=== PATIENT | female | born 1985 | race Caucasian/White ===

== ENCOUNTER 2020-05-13 02:34 | Observation (INO) | payer SELFPAY ==
[~2020-05-13] VITALS: Ht 162 cm; Wt 68.9 kg
[~2020-05-13 02:34] MED LIST: ALPR1T PO; ALPR2TAB2 PO; BUTA-234 PO; CYCL10TA9 PO; FAMO20TA5 PO; HYDR-700 PO; HYDR1TAB PO; IBUP-15 PO; KETO50CA PO; LEVO500T69 PO; METH4TAB PO; MUPI1OIN6 TP; NAPR-243 PO; NAPR-248 PO; NITR100C3 PO; PRD20T PO; PRX10T PO; SMTR50T PO; SULF1TAB23 PO; SULF1TAB35 PO; SULF1TAB38 PO; SUMA1TAB PO; TRAM50TA2 PO; WELLBUTRIN PO
[2020-05-13] MEDS ORDERED: PROPRANOLOL 20 MG (INDERAL) TABLET PO ONE (03:00)
[2020-05-13] MEDS ORDERED: ORPHENADRINE 60 MG/2 ML (NORFLEX) AMP (ED ONLY) IV ONE (03:00)
[2020-05-13] MEDS ORDERED: KETOROLAC 30 MG/ML VIAL IVP ONE (03:00)
--- NOTE | 2020-05-13 03:00 | NUR ---
PT BACK PAIN IS BETTER; BUT RESTLESS LEGS ARE GETTING WORSE. MD NOTIFIED.
[2020-05-13 03:23] LABS: BILIRUBIN,URINE NEGATIVE (NEGATIVE); CLARITY,URINE SL CLOUDY; COLOR,URINE OTHER; GLUCOSE, URINE (UA) NEGATIVE (NEGATIVE); KETONES,URINE NEGATIVE (NEGATIVE); LEUKOCYTE ESTERASE ,URINE NEGATIVE (NEGATIVE); NITRITE,URINE NEGATIVE (NEGATIVE); PROTEIN,URINE NEGATIVE (NEGATIVE)
[2020-05-13 03:35] LABS: AMPHETAMINE SCREEN, URINE NEGATIVE (NEGATIVE); BARBITURATE SCREEN URINE NEGATIVE (NEGATIVE); BENZODIAZEPINES SCREEN URINE NEGATIVE (NEGATIVE); CANNABINOID SCREEN, URINE NEGATIVE (NEGATIVE); COCAINE SCREEN URINE NEGATIVE (NEGATIVE); METHADONE STAT NEGATIVE (NEGATIVE); METHAMPHETAMINE SCREEN URINE S NEGATIVE (NEGATIVE); OPIATE SCREEN URINE NEGATIVE (NEGATIVE); OXYCODONE STAT NEGATIVE (NEGATIVE); PROPOXYPHENE STAT NEGATIVE (NEGATIVE); TRICYCLIC ANTIDEPRESSANTS SCRE POSITIVE (NEGATIVE)
[2020-05-13 03:39] LABS: BACTERIA,URINE TRACE /HPF; SQUAMOUS EPITHELIAL CELL,UR 0-2 /HPF; WBC,URINE RARE /HPF
[2020-05-13] MEDS ORDERED: LORazepam INJ 2 MG/ML (ATIVAN) VIAL IVP ONE ×2 (03:45→04:15)
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
[2020-05-13] MEDS ORDERED: PRAMIPEXOLE 0.125 MG (MIRAPEX) TABLET PO ONE (04:15)
--- NOTE | 2020-05-13 04:19 | NUR ---
PT NOW HALLUCINATING AND STILL RESTLESS AND UNABLE TO SIT STILL. PT STUMBLING AROUND ROOM, PLACED IN BED AND SIDE RAILS UP X2.
[2020-05-13 04:21] LABS: BASOPHILS % (AUTO) 1 % (0-10); EOSINOPHILS # (AUTO) 0.1 10^3/uL (0.0-0.3); EOSINOPHILS % (AUTO) 2 % (0-10); HEMATOCRIT 39 % (35-52); HEMOGLOBIN 13.5 G/DL (11.5-16.0); LYMPHOCYTES # (AUTO) 2.6 X 10^3 (1.0-4.0); LYMPHOCYTES % (AUTO) 41 % (12-44); MEAN CORPUSCULAR HEMOGLOBIN 31 PG (25-34); MEAN CORPUSCULAR HGB CONC 35 G/DL (32-36); MEAN CORPUSCULAR VOLUME 89 FL (80-99); MEAN PLATELET VOLUME 10.8 FL (7.4-10.4); MONOCYTES # (AUTO) 0.7 X 10^3 (0.0-1.0); MONOCYTES % (AUTO) 12 % (0-12); NEUTROPHILS # (AUTO) 2.9 X 10^3 (1.8-7.8); NEUTROPHILS % (AUTO) 46 % (42-75); PLATELET COUNT 256 10^3/uL (130-400); RED CELL DISTRIBUTION WIDTH 12.3 % (10.0-14.5); WHITE BLOOD COUNT 6.4 10^3/uL (4.3-11.0)
[2020-05-13 04:22] LABS: CHLORIDE 108 MMOL/L (98-107); POTASSIUM 3.6 MMOL/L (3.6-5.0); SODIUM 142 MMOL/L (135-145)
[2020-05-13 04:23] LABS: CALCIUM 9.4 MG/DL (8.5-10.1)
[2020-05-13 04:24] LABS: GLUCOSE 96 MG/DL (70-105)
[2020-05-13 04:25] LABS: CARBON DIOXIDE 23 MMOL/L (21-32)
[2020-05-13] MEDS ORDERED: diphenhydrAMINE 25 MG TAB (BENADRYL) PO ONE ×2 (04:26→04:30)
[2020-05-13 04:28] LABS: CREATININE SERUM 1.01 MG/DL (0.60-1.30); GFR ESTIMATED > 60
[2020-05-13 04:29] LABS: BUN/CREATININE RATIO 14
[2020-05-13 04:30] LABS: MAGNESIUM 2.1 MG/DL (1.6-2.4)
[2020-05-13] MEDS ORDERED: diphenhydrAMINE 50 MG/ML INJ (BENADRYL) IVP ONE (04:30)
--- NOTE | 2020-05-13 05:31 | NUR ---
PT CONTINUES TO HALLUCINATE; UNABLE TO OBTAIN VITALS OR KEEP PT ON MONITOR DUE TO EXCESSIVE WANDERING AND MOVING. MONITORING PT CLOSELY AT THIS TIME.
[2020-05-13] MEDS ORDERED: HALOPERIDOL 0.5 MG (HALDOL) TAB ONE (06:08)
--- NOTE | 2020-05-13 06:11 | NUR ---
PLAN TO ADMIT FOR OBSERVATION WITH ONE ON ONE SITTER FOR PATIENT SAFETY. UPDATED FAMILY OF PLAN OF CARE.
[2020-05-13] MEDS ORDERED: HALOPERIDOL 2 MG (HALDOL) TABLET PO ONE (06:15)
[2020-05-13 07:28] VITALS: BP 104/61
--- NOTE | 2020-05-13 08:01 | NUR ---
Monicahenna Saleh admitted to room 408-1. Live sitter at bedside. Patient resting with eyes closed, bed alarm on.
[2020-05-13 08:36] VITALS: BP 104/70
[2020-05-13 12:44] VITALS: BP 98/61
--- NOTE | 2020-05-13 14:50 | NUR ---
CM/SS visited with patient for social service consult. The patient was sleeping the first time this sw attempted to visit and did not wake. CM/SS attempted the second time and patient woke easily. The patient reports that she came to the hospital due to back pain. However, after medications were given the patient appeared to have psych issues. The patient appeared very calm and oriented during the visit. She states that she has had one previous psych visit in 2010 after a suicide attempt. She denies any suicidal ideation at this time. She does not currently have a mental health provider or therapist. She follows with DR. Reynoso at the [facility]. The patient is currently working at [employer] in [place] but does not have health insurance. JUSTIN/SS asked if the patient had a history of drug use. 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 The patient denies any current drug or alcohol use at this time. The patient reports that she has a good support system with her , mother, 3 children (15,13,12), and her grandparents. She states that she does not have any additional needs at this time.
[2020-05-13] MEDS ORDERED: [UNRECOGNIZED DRUG - CODE] PO (15:07)
--- NOTE | 2020-05-13 15:14 | Discharge Summary ---
Discharge Summary Hospital Course Was the Problem List Reviewed?: Yes Problems/Dx: (1) Muscle spasm of back Status: Acute (2) Acute delirium Status: Acute Hospital Course Date of Admission: May 13, 2020 at 06:24 Admission Diagnosis : Acute delirium Family Physician/Provider: Justice Reynoso Date of Discharge: 05/13/20 Discharge Diagnosis: Acute delirium Hospital Course: Monica Saleh is a 34-year-old female who presented with back pain and was admitted with acute delirium. She was given IV Ativan in the emergency room to help with back pain but it precipitated delirium. She was also given Benadryl which may have worsened the delirium. She was observed and her delirium resolved. She has been having issues with back spasms and had tried Flexeril but this worsened her restless leg syndrome. She had also tried a dose of amitriptyline but this also worsened her restless legs. She was given a prescription for Metaloxone on discharge. She'll follow-up with her primary care physician in about a week. Labs and Pending Lab Test: Laboratory Tests 05/13/20 02:50: Urine Color OTHERH, Urine Clarity SL CLOUDY, Urine pH 7.0, Urine Specific [place] <=1.005, Urine Protein NEGATIVE, Urine Glucose (UA) NEGATIVE, Urine Ketones NEGATIVE, Urine Nitrite NEGATIVE, Urine Bilirubin NEGATIVE, Urine Urobilinogen 0.2, Urine Leukocyte Esterase NEGATIVE, Urine RBC (Auto) NEGATIVE, Urine RBC NONE, Urine WBC RARE, Urine Squamous Epithelial Cells 0-2, Urine Crystals NONE, Urine Bacteria TRACE, Urine Casts NONE, Urine Mucus NEGATIVE, Uri ne Culture Indicated NO, Urine Opiates Screen NEGATIVE, Urine Oxycodone Screen NEGATIVE, Urine Methadone Screen NEGATIVE, Urine Propoxyphene Screen NEGATIVE, Urine Barbiturates Screen NEGATIVE, Ur Tricyclic Antidepressants Screen POSITIVEH, Urine Phencyclidine Screen NEGATIVE, Urine Amphetamines Screen NEGATIVE, Urine Methamphetamines Screen NEGATIVE, Urine Benzodiazepines Screen NEGATIVE, Urine Cocaine Screen NEGATIVE, Urine Cannabinoids Screen NEGATIVE 05/13/20 03:04: White Blood Count 6.4, Red Blood Count 4.36, Hemoglobin 13.5, Hematocrit 39, Mean Corpuscular Volume 89, Mean Corpuscular Hemoglobin 31, Mean Corpuscular Hemoglobin Concent 35, Red Cell Distribution Width 12.3, Platelet Count 256, Mean Platelet Volume 10.8H, Neutrophils (%) (Auto) 46, Lymphocytes (%) (Auto) 41, Monocytes (%) (Auto) 12, Eosinophils (%) (Auto) 2, Basophils (%) (Auto) 1, Neutrophils # (Auto) 2.9, Lymphocytes # (Auto) 2.6, Monocytes # (Auto) 0.7, Eosinophils # (Auto) 0.1, Basophils # (Auto) 0.0, Sodium Level 142, Potassium Level 3.6, Chloride Level 108H, Carbon Dioxide Level 23, Anion Gap 11, Blood Urea Nitrogen 14, Creatinine 1.01, Estimat Glomerular Filtration Rate > 60, BUN/Creatinine Ratio 14, Glucose Level 96, Calcium Level 9.4, Magnesium Level 2.1, Serum Test, Qualitative NEGATIVE 05/13/20 03:07: Serum Alcohol < 10 Home Meds Active Metaxalone 400 Mg Tablet 400 Mg PO TID PRN 7 Days Mupirocin 1 Gm Oin.pf.angel 1 Gm TP BID Bactrim Ds Tablet (Sulfamethoxazole/Trimethoprim) 1 Each Tablet 1 Each PO BID Hydroxyzine 25 Mg Tablet (Hydroxyzine HCl) 25 Mg Tablet 1 Each PO TID - QID PRN PRN Pepcid (Famotidine) 20 Mg Tablet 1 Each PO BID 5 Days Deltasone Tablet (Prednisone) 20 Mg Tablet 60 Mg PO DAILY 4 Days Assessment/Pt Instructions Take medications as prescribed. Follow-up with your primary care physician in about a week. Discharge Planning: <30 minutes discharge planning Discharge Instructions Discharge Diet: No Restrictions Activity as Tolerated: Yes Discharge Physical Examination Vital Signs Vital Signs Date Time Temp Pulse Resp B/P (MAP) Pulse Ox O2 Delivery O2 Flow Rate FiO2 05/13/20 12:44 37.0 67 16 98/61 (73) 96 Room Air 05/13/20 08:01 98.00 General Appearance: No Apparent Distress, WD/WN HEENT: PERRL/EOMI, Pharynx Normal Respiratory: Lungs Clear, Normal Breath Sounds, No Respiratory Distress Cardiovascular: Regular Rate, Rhythm, No Edema, No Murmur Gastrointestinal: Normal Bowel Sounds, Non Tender, Soft Extremity: Normal Inspection, Non Tender, No Pedal Edema Skin: Normal Color, Warm/Dry Neurologic/Psychiatric: Alert, Oriented x3, No Motor/Sensory Deficits, Normal Mood/Affect Allergies: Coded Allergies: Penicillins (Verified Allergy, Mild, 02/15/14) Cephalosporins (Verified Allergy, Unknown, 02/15/14) cefaclor (Verified Allergy, Unknown, 08/04/06) cefuroxime (Verified Allergy, Unknown, 08/04/06) Uncoded Allergies: GENERAL ANESTHESIA (Allergy, Unknown, 09/13/06) Copy Copies To 1: [facility] [place] Summary Date of Admission May 13, 2020 at 06:24 Date of Discharge Discharge Date: May 13, 2020 Discharge Time: 15:13 Discharge Diagnosis (1) Muscle spasm of back Status: Acute (2) Acute delirium Status: Acute Clinical Quality Measures DVT/VTE Risk/Contraindication: Risk Factor Score Per Nursin RFS Level Per Nursing on Admit: 1=Low/No VTE PPX MELECIO TOLLIVER MD May 13, 2020 15:14
[2020-05-13 16:12] VITALS: BP 90/59
== END 2020-05-13 16:42 | disposition home or self-care (01) ==
LOC: EDUNIT# 02:34 → ER 02:36 → 4TH 06:24
PROVIDERS: ADMIT Internal Medicine; ATTEND Internal Medicine
DX: R41.0 Disorientation, unspecified (principal); M62.830 Muscle spasm of back; G25.81 Restless legs syndrome; G43.909 Migraine, unspecified, not intractable, without status migrainosus; G89.29 Other chronic pain; M41.9 Scoliosis, unspecified; F32.9 Major depressive disorder, single episode, unspecified; R44.3 Hallucinations, unspecified; F17.210 Nicotine dependence, cigarettes, uncomplicated; Z79.899 Other long term (current) drug therapy; Z88.0 Allergy status to penicillin; Z88.1 Allergy status to other antibiotic agents
CPT/HCPCS: 80048; 80306; 81000; 83735; 84703; 85025; 99284; G0480; 36415; 80320; G0378

== ENCOUNTER 2021-07-03 17:30 | Emergency (ER) | payer SELFPAY ==
[~2021-07-03] VITALS: Ht 162.5 cm; Wt 60.7 kg
[~2021-07-03 17:30] MED LIST changes: +[UNRECOGNIZED DRUG - CODE] PO
--- NOTE | 2021-07-03 18:08 | ED GU-Female ---
General Chief Complaint: Female Reproductive Stated Complaint: BACK PAIN, VAGINAL BLEEDING, 8 WEEKS Source: patient History of Present Illness Date Seen by Provider: Jul 03, 2021 Time Seen by Provider: 17:53 Initial Comments PT ARRIVES VIA POV FROM HOME STATES SHE IS "8 WEEKS " ( HER OWN ESTIMATE )--LMP 03/15/21, HAD POSITIVE HOME TEST THE END OF APRIL HAS FIRST OB APPOINTMENT AT [facility] ON 07/18/21 STATES SHE HAD MORNING SICKNESS FOR 1 1/2 MONTHS, BUT IT STOPPED LAST WEEK AND HAS NOT HAD ANY NAUSEA/VOMITING SINCE PT HAS BEEN EATING AND DRINKING NORMALLY PT HAS HAD LOWER BACK PAIN X 1 1/2 WEEKS--HAS CHROINC BACK PAIN THIS AM, SHE HAD "HEAVY SPOTTING"--HAS USED 2 PANTI-LINERS AND THEY WERE NOT SATURATED, BUT HAS PASSED SOME SMALL CLOTS IN THE TOILET HAS HAD URINARY FREQUENCY, BUT NO PAIN ON URINATION NO FEVER NO ABDOMINAL PAIN PT TAKES IBUPROFEN DAILY. DOES NOT TAKE TYLENOL PT IS NOT TAKING VITAMINS PT IS AB 3 HAS NOT ATTEMPTED TO CONTACT [facility] FOR THIS PROBLEM, OR SOUGHT CARE UNTIL TONIGHT FOR THIS PROBLEM PCP: [facility] Allergies and Home Medications Allergies Coded Allergies: Penicillins (Verified Allergy, Mild, 02/15/14) Cephalosporins (Verified Allergy, Unknown, 02/15/14) cefaclor (Verified Allergy, Unknown, 08/04/06) cefuroxime (Verified Allergy, Unknown, 08/04/06) amitriptyline (Verified Adverse Reaction, Unknown, Agitation, 05/13/20) RLS vs EPS lorazepam (Verified Adverse Reaction, Unknown, delirium, 05/13/20) Acute delirium with hallucinations Uncoded Allergies: GENERAL ANESTHESIA (Allergy, Unknown, 09/13/06) Home Medications Famotidine 20 Mg Tablet, 1 EACH PO BID Prescribed by: MORAIMA WADE on 09/29/14 0838 Hydroxyzine Hcl 25 Mg Tablet, 1 EACH PO TID - QID PRN PRN for ITCHING Prescribed by: MORAIMA WADE on 09/29/14 0838 Metaxalone 400 Mg Tablet, 400 MG PO TID PRN for BACK PAIN Prescribed by: MELECIO TOLLIVER on 05/13/20 1507 Mupirocin 1 Gm Oin.pf.angel, 1 GM TP BID Prescribed by: JASON PETERSEN on 04/12/16 1131 Patient Home Medication List Home Medication List Reviewed: Yes Review of Systems Review of Systems Constitutional: no symptoms reported Respiratory: no symptoms reported Cardiovascular: no symptoms reported Gastrointestinal: no symptoms reported Genitourinary: see HPI, frequency : Yes LMP: March 15, 2021 Musculoskeletal: see HPI, back pain Skin: no symptoms reported Psychiatric/Neurological: No Symptoms Reported Endocrine: No Symptoms Reported Hematologic/Lymphatic: No Symptoms Reported Past Swfjtzg-Wgmvye-Wlayii Hx Patient Social History Tobacco Use?: Yes (1 PPD) Tobacco type used: Cigarettes Smoking Status: Current Everyday Smoker Substance use?: Yes (IN PAST) Substance type: Amphetamines, Opiates/Opioids, 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) Pt feels they are or have been: No Immunizations Up To Date Tetanus Booster (TDap): Less than 5yrs Seasonal Allergies Seasonal Allergies: No Past Medical History Surgeries: Yes (RIGHT KNEE SCOPE; OOPHORECTOMY FOR ECTOPIC ) Oophorectomy, Orthopedic Respiratory: No Cardiac: No Neurological: Yes (Restless leg syndrome) Headaches /Migraines : Yes Last Menstrual Period: March 15, 2021 Hx : 5 Hx Para: 3 Hx Total # of Abortions (Sp): 1 (NO D&C) Reproductive Disorders: Yes (ECTOPIC ) Genitourinary: Yes Bladder Infection Gastrointestinal: No Musculoskeletal: Yes Scoliosis, Chronic Back Pain Endocrine: No Cancer: No Psychosocial: Yes ("CUTTER": OVERDOSES + ALCOHOL) Sleep Difficulties, Suicide Attempts, Depression Integumentary: No Blood Disorders: No Adverse Reaction/Blood Tranf: No Family Medical History No Pertinent Family Hx Physical Exam Vital Signs Vital Signs - First Documented 07/03/21 17:50 Temp 36.6 Pulse 87 Resp 16 B/P (MAP) 109/82 (91) Pulse Ox 99 O2 Delivery Room Air Capillary Refill : Height, Weight, BMI Height: 5'3" Weight: 160lbs. 1.6oz. [id number]; 26.25 BMI Method:Stated General Appearance: WD/WN, no apparent distress, other (FLAT AFFECT. 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 WALKS UPRIGHT AND MOVES WITHOUT DIFFICULTY) Cardiovascular: regular rate, rhythm, no edema, no murmur Respiratory: normal breath sounds Gastrointestinal: non tender, soft, no organomegaly, other (UNABLE TO PALPATE FUNDUS EXTERNALLY) Pelvic: normal external exam, normal adnexa, no cerv. motion tender, no masses, vaginal bleeding (SCANT AMOUNT OF BLOOD IN CANAL. NO CLOTS, NO PRODUCTS OF CONCEPTION. CERVIX CLOSED. FUNDUS /UTERINE SIZE ESSENTIALLY NORMAL. 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, no motor/sensory deficits, alert, oriented x 3, other (FLAT AFFECT) Skin: normal color, warm/dry, tattoos/piercings Progress/Results/Core Measures Suspected Sepsis SIRS Temperature: Pulse: Respiratory Rate: Laboratory Tests 07/03/21 18:25: White Blood Count 6.8 Blood Pressure / Mean: Laboratory Tests 07/03/21 18:25: Creatinine 1.02, Platelet Count 304 Results/Orders Lab Results Laboratory Tests Test 07/03/21 18:10 07/03/21 18:25 Range/Units Urine Color YELLOW Urine Clarity CLEAR Urine pH 5.5 5-9 Urine Specific [place] 1.025 H 1.016-1.022 Urine Protein NEGATIVE NEGATIVE Urine Glucose (UA) NEGATIVE NEGATIVE Urine Ketones NEGATIVE NEGATIVE Urine Nitrite NEGATIVE NEGATIVE Urine Bilirubin NEGATIVE NEGATIVE Urine Urobilinogen 0.2 < = 1.0 MG/DL Urine Leukocyte Esterase TRACE H NEGATIVE Urine RBC (Auto) NEGATIVE NEGATIVE Urine RBC NONE /HPF Urine WBC 5-10 H /HPF Urine Squamous Epithelial Cells 2-5 /HPF Urine Renal Epithelial Cells 0-2 /HPF Urine Crystals NONE /LPF Urine Bacteria TRACE /HPF Urine Casts NONE /LPF Urine Mucus SMALL H /LPF Urine Culture Indicated YES Urine Opiates Screen POSITIVE H NEGATIVE Urine Oxycodone Screen NEGATIVE NEGATIVE Urine Methadone Screen NEGATIVE NEGATIVE Urine Propoxyphene Screen NEGATIVE NEGATIVE Urine Barbiturates Screen NEGATIVE NEGATIVE Ur Tricyclic Antidepressants Screen NEGATIVE NEGATIVE Urine Phencyclidine Screen NEGATIVE NEGATIVE Urine Amphetamines Screen NEGATIVE NEGATIVE Urine Methamphetamines Screen NEGATIVE NEGATIVE Urine Benzodiazepines Screen NEGATIVE NEGATIVE Urine Cocaine Screen NEGATIVE NEGATIVE Urine Cannabinoids Screen NEGATIVE NEGATIVE White Blood Count 6.8 4.3-11.0 10^3/uL Red Blood Count 4.20 3.80-5.11 10^6/uL Hemoglobin 13.0 11.5-16.0 g/dL Hematocrit 39 35-52 % Mean Corpuscular Volume 93 80-99 fL Mean Corpuscular Hemoglobin 31 25-34 pg Mean Corpuscular Hemoglobin Concent 33 32-36 g/dL Red Cell Distribution Width 12.1 10.0-14.5 % Platelet Count 304 130-400 10^3/uL Mean Platelet Volume 9.8 9.0-12.2 fL Immature Granulocyte % (Auto) 0 % Neutrophils (%) (Auto) 43 42-75 % Lymphocytes (%) (Auto) 45 H 12-44 % Monocytes (%) (Auto) 6 0-12 % Eosinophils (%) (Auto) 5 0-10 % Basophils (%) (Auto) 1 0-10 % Neutrophils # (Auto) 2.9 1.8-7.8 10^3/uL Lymphocytes # (Auto) 3.1 1.0-4.0 10^3/uL Monocytes # (Auto) 0.4 0.0-1.0 10^3/uL Eosinophils # (Auto) 0.3 0.0-0.3 10^3/uL Basophils # (Auto) 0.1 0.0-0.1 10^3/uL Immature Granulocyte # (Auto) 0.0 0.0-0.1 10^3/uL Sodium Level 142 135-145 MMOL/L Potassium Level 3.9 3.6-5.0 MMOL/L Chloride Level 104 98-107 MMOL/L Carbon Dioxide Level 26 21-32 MMOL/L Anion Gap 12 5-14 MMOL/L Blood Urea Nitrogen 13 7-18 MG/DL Creatinine 1.02 0.60-1.30 MG/DL Estimat Glomerular Filtration Rate 62 BUN/Creatinine Ratio 13 Glucose Level 93 70-105 MG/DL Calcium Level 10.0 8.5-10.1 MG/DL Human Chorionic Gonadotropin, Quant < 5 <5 MIU/ML My Orders Orders - JASON PETERSEN DO Cbc With Automated Diff (07/03/21 17:55) Hcg,Quantitative (07/03/21 17:55) Ed Iv/Invasive Line Start (07/03/21 18:02) Straight Cath For Spec.-Adult (07/03/21 18:02) Basic Metabolic Panel (07/03/21 18:02) Drug Screen Stat (Urine) (07/03/21 18:02) Ua Culture If Indicated (07/03/21 18:02) Heart Tones (07/03/21 18:11) Urine Culture (07/03/21 18:10) Vital Signs/I&O 07/03/21 17:50 Temp 36.6 Pulse 87 Resp 16 B/P (MAP) 109/82 (91) Pulse Ox 99 O2 Delivery Room Air Capillary Refill : Progress Note : Progress Note NO ULTRASOUND AVAILABLE AT THIS TIME. NO HEART TONES AUSCULTATED WITH DOPPLER AT THIS TIME DID NOT USE ANY PADS/LINERS DURING ER STAY, DID NOT PASS ANY CLOTS OR HAVE ANY SIGNIFICANT BLEEDING DURING ER STAY BLOOD TYPE O+ Departure Impression Primary Impression: Urinary tract infection Additional Impression: Irregular menstrual bleeding Disposition: HOME, SELF-CARE Condition: Stable Departure-Patient Inst. Decision time for Depature: 19:30 Referrals: NO,LOCAL PHYSICIAN (PCP) Primary Care Physician MORAIMA CHATTERJEE (Family) Primary Care Physician [facility] Patient Instructions: Urinary Tract Infection, Adult (DC), Absent or Irregular Periods Add. Discharge Instructions: LOTS OF FLUIDS--NO COFFEE, POP OR TEA TYLENOL AND MOTRIN NEEDED FOR PAIN FOLLOW UP WITH [facility] NEEDED All discharge instructions reviewed with patient and/or family. Voiced understanding. Scripts Nitrofurantoin Monohyd/M-Cryst (Macrobid 100 mg Capsule) 100 Mg Capsule 1 TAB PO BID, #20 CAP Prov: JASON PETERSEN DO 07/03/21 JASON PETERSEN DO Jul 03, 2021 18:08
[2021-07-03 18:23] LABS: BILIRUBIN,URINE NEGATIVE (NEGATIVE); CLARITY,URINE CLEAR; COLOR,URINE YELLOW; GLUCOSE, URINE (UA) NEGATIVE (NEGATIVE); KETONES,URINE NEGATIVE (NEGATIVE); LEUKOCYTE ESTERASE ,URINE TRACE (NEGATIVE); NITRITE,URINE NEGATIVE (NEGATIVE); PH,URINE 5.5 (5-9); PROTEIN,URINE NEGATIVE (NEGATIVE)
[2021-07-03 18:31] LABS: BACTERIA,URINE TRACE /HPF; RENAL EPITHELIAL CELLS,URINE 0-2 /HPF
[2021-07-03 18:36] LABS: AMPHETAMINE SCREEN, URINE NEGATIVE (NEGATIVE); BARBITURATE SCREEN URINE NEGATIVE (NEGATIVE); BENZODIAZEPINES SCREEN URINE NEGATIVE (NEGATIVE); CANNABINOID SCREEN, URINE NEGATIVE (NEGATIVE); COCAINE SCREEN URINE NEGATIVE (NEGATIVE); METHADONE STAT NEGATIVE (NEGATIVE); METHAMPHETAMINE SCREEN URINE S NEGATIVE (NEGATIVE); OPIATE SCREEN URINE POSITIVE (NEGATIVE); OXYCODONE STAT NEGATIVE (NEGATIVE); PROPOXYPHENE STAT NEGATIVE (NEGATIVE); TRICYCLIC ANTIDEPRESSANTS SCRE NEGATIVE (NEGATIVE)
[2021-07-03 18:39] LABS: BASOPHILS # (AUTO) 0.1 10^3/uL (0.0-0.1); BASOPHILS % (AUTO) 1 % (0-10); EOSINOPHILS # (AUTO) 0.3 10^3/uL (0.0-0.3); EOSINOPHILS % (AUTO) 5 % (0-10); HEMATOCRIT 39 % (35-52); LYMPHOCYTES # (AUTO) 3.1 10^3/uL (1.0-4.0); LYMPHOCYTES % (AUTO) 45 % (12-44); MEAN CORPUSCULAR HEMOGLOBIN 31 pg (25-34); MEAN CORPUSCULAR HGB CONC 33 g/dL (32-36); MEAN CORPUSCULAR VOLUME 93 fL (80-99); MEAN PLATELET VOLUME 9.8 fL (9.0-12.2); MONOCYTES # (AUTO) 0.4 10^3/uL (0.0-1.0); MONOCYTES % (AUTO) 6 % (0-12); NEUTROPHILS # (AUTO) 2.9 10^3/uL (1.8-7.8); NEUTROPHILS % (AUTO) 43 % (42-75); PLATELET COUNT 304 10^3/uL (130-400); WHITE BLOOD COUNT 6.8 10^3/uL (4.3-11.0)
[2021-07-03 19:08] LABS: CHLORIDE 104 MMOL/L (98-107); POTASSIUM 3.9 MMOL/L (3.6-5.0); SODIUM 142 MMOL/L (135-145)
[2021-07-03 19:10] LABS: GLUCOSE 93 MG/DL (70-105)
[2021-07-03 19:11] LABS: CARBON DIOXIDE 26 MMOL/L (21-32)
[2021-07-03 19:14] LABS: CREATININE SERUM 1.02 MG/DL (0.60-1.30); GFR ESTIMATED 62
[2021-07-03 19:15] LABS: BUN/CREATININE RATIO 13
[2021-07-03] MEDS ORDERED: NITR-65 PO (19:33)
[2021-07-03 19:38] VITALS: BP 99/62
== END 2021-07-03 19:42 | disposition home or self-care (01) ==
LOC: EDUNIT# 17:30 → ER 17:34
DX: N39.0 Urinary tract infection, site not specified (principal); N92.6 Irregular menstruation, unspecified; F17.210 Nicotine dependence, cigarettes, uncomplicated
CPT/HCPCS: 36415; 51701; 80048; 80306; 81000; 84702; 85025; 87088